=== PATIENT | male | born 1970 | race Caucasian/White ===

== ENCOUNTER 2016-06-14 17:14 | Emergency (ER) | payer OTHER ==
[2016-06-14] MEDS ORDERED: ONDANSETRON 4 MG/2ML 2 ML VIAL ONE (17:30)
--- NOTE | 2016-06-14 18:02 | CT ---
Name: THEO SNELL Exam: CT head without contrast Comparison: None Clinical history: Trauma Technique: Helical CT was performed through the head. Angled axial reconstructions were obtained. Sagittal and coronal reconstructions were obtained as well. No contrast was given. An automated dose reduction technique was used to minimize patient radiation dose. Findings: There is no shift of the midline structures. Ventricles are of normal size and configuration. There is no mass, mass effect or hemorrhage. Cisterns are uneffaced. Posterior fossa is unremarkable. There is no fracture. Visualized paranasal sinuses and mastoid air cells are within normal limits. Impression: Negative unenhanced CT of the head Note: The above report was uploaded to [facility]'s electronic medical records system at 1759 hours.
--- NOTE | 2016-06-14 18:05 | CT ---
Name: THEO SNELL Exam: CT of the cervical spine without contrast Comparison: None. Clinical history: Pain. Trauma Procedure: Helical CT using multidetector technique was applied to the cervical spine. No contrast was given. Sagittal, axial and coronal images are submitted. And automated dose reduction technique was used to minimize patient radiation dose. Findings: Bone density is within normal limits. Alignment is within normal limits. There is no fracture or acute disc. There are features of old trauma involving the posterior spinous process of T1. The odontoid is intact. Perivertebral soft tissues are within normal limits. Impression: No acute bony abnormality Note: The above report was uploaded to [facility]'s electronic medical records system at 1801 hours.
[2016-06-14 18:14] LABS: ABSOLUTE NEUTROPHIL COUNT 5.2 K/mm3 (1.8-7.7); BASO % 0.4 % (0.2-1.0); EOS # 0.1 (0.0-0.5); EOS % 1.1 % (0.9-2.9); HEMATOCRIT 44.5 % (32.0-52.0); HEMOGLOBIN 14.2 gm/l (14.0-18.0); IMM NEUT% 0.4 % (0-1); LYMPH # 2.6 (1.0-4.8); LYMPH % 29.9 % (15-45); MEAN CELL VOLUME 89.2 fl (80.0-94.0); MEAN CORPUSCULAR HEMOGLOBIN 28.5 pg (27.0-31.0); MEAN CORPUSCULAR HGB CONC 31.9 g/dl (33.0-37.0); MEAN PLATELET VOLUME 9.4 fl (7.4-10.4); MONO # 0.7 (0.0-0.8); MONO % 8.1 % (4-12); NEUT % 60.1 % (43-75); PLATELET COUNT 300 K/mm3 (130-400); RED CELL DISTRIBUTION WIDTH 12.3 % (11.5-14.5)
[2016-06-14 18:28] LABS: ALB/GLOB RATIO 1.8 (>1.0); ALBUMIN 4.4 gm/dL (3.5-5.7); CALCIUM 10.4 mg/dL (8.6-10.3)
[2016-06-14] MEDS ORDERED: HYDROMORPHONE HCL 1 MG/ML SYRINGE ONE (18:31)
[2016-06-14 18:32] LABS: INR 0.94; PARTIAL THROMBOPLASTIN TIME 22.2 SECONDS (24.5-33.0); PROTHROMBIN TIME 9.9 SECONDS (9.3-11.4)
[2016-06-14 18:50] LABS: SPECIFIC GRAVITY 1.015 (1.001-1.030); URINE BILIRUBIN NEGATIVE (NEGATIVE); URINE BLOOD NEGATIVE (NEGATIVE); URINE GLUCOSE (UA) NEGATIVE (NEGATIVE); URINE LEUKOCYTE ESTERASE NEGATIVE (NEGATIVE); URINE NITRITE NEGATIVE (NEGATIVE); URINE PROTEIN NEGATIVE (NEGATIVE); URINE UROBILINOGEN NORMAL (0-1 mg/dl)
[2016-06-14 18:51] LABS: URINE APPEARANCE CLEAR; URINE COLOR LIGHT YELLOW
== END 2016-06-14 19:30 | disposition home or self-care (01) ==
LOC: ED 17:14
DX: S06.0X0A Concussion without loss of consciousness, initial encounter (principal); T14.8 Other injury of unspecified body region; W22.09XA Striking against other stationary object, initial encounter; Y93.23 Activity, snow (alpine) (downhill) skiing, snowboarding, sledding, tobogganing and snow tubing; Y92.838 Other recreation area as the place of occurrence of the external cause; Y99.8 Other external cause status
CPT/HCPCS: 85025; 80053; 85730; 85610; 81003; 72125; 70450; 99283 ×2; J1170; J2405